=== PATIENT | female | born 1960 | race Caucasian/White ===

== ENCOUNTER 2024-04-21 14:02 | Emergency (ER) | payer MEDICARE, MEDICAID ==
[~2024-04-21] VITALS: Ht 160 cm; Wt 77.0 kg
[2024-04-21 14:20] VITALS: O2SAT 98
[2024-04-21] MEDS: IBUPROFEN 600MG TABLET PO ONE (16:00)
[2024-04-21] MEDS ORDERED: IBUP-2029 MT (16:02)
[2024-04-21 16:28] VITALS: BP 132/78; PULSE 81; RESP 18; TEMP 97.5
== END 2024-04-21 17:19 | disposition home or self-care (01) ==
LOC: ER 14:02
DX: S83.91XA Sprain of unspecified site of right knee, initial encounter (principal); E11.9 Type 2 diabetes mellitus without complications; I10 Essential (primary) hypertension; W18.39XA Other fall on same level, initial encounter; Y93.89 Activity, other specified; Y92.89 Other specified places as the place of occurrence of the external cause; Y99.8 Other external cause status
CPT/HCPCS: 73560; 99283

== ENCOUNTER 2024-06-07 15:02 | Emergency (ER) | payer MEDICARE, MEDICAID ==
[~2024-06-07] VITALS: Ht 167.6 cm; Wt 85.0 kg
[~2024-06-07 15:02] MED LIST: AMLO5TAB88 PO; ASPI-1160 PO; IBUP-2029 MT; ISOS30TA91 PO; LIP40 PO
[2024-06-07 15:03] VITALS: O2SAT 99
[2024-06-07 15:39] LABS: BASOPHILS % 1.2 % (0.0-2.0); EOSINOPHILS % 3.6 % (0.0-5.0); HEMATOCRIT. 38.8 % (36.0-48.0); HEMOGLOBIN. 13.5 g/dL (12.0-16.0); LYMPHOCYTES % 21.8 % (20.0-50.0); MEAN CORPUSCULAR HEMOGLOBIN 32.3 pg (28.0-32.0); MEAN CORPUSCULAR HGB CONC 34.8 g/dL (31.0-37.0); MEAN PLATELET VOLUME 10.4 fl (7.4-10.4); MONOCYTES % 6.6 % (2.0-8.0); NEUTROPHILS % 66.8 % (40.0-76.0); PLATELET 213 x1000/uL (130-400); RED BLOOD CELL COUNT 4.18 mill/uL (4.2-5.4); RED CELL DISTRIBUTION WIDTH 12.8 % (11.6-14.6); WHITE BLOOD COUNT 6.7 x1000/uL (4.5-11.0)
[2024-06-07 15:41] LABS: CHLORIDE 106 mEq/L (98-107); POTASSIUM 3.8 mEq/L (3.5-5.1); SODIUM 139 mEq/L (136-145)
[2024-06-07 15:42] LABS: CARBON DIOXIDE 29 mEq/L (21-32)
[2024-06-07 15:43] LABS: CALCIUM 9.5 mg/dL (8.7-10.4)
[2024-06-07 15:47] LABS: CREATININE 0.7 mg/dL (0.6-1.0); GLUCOSE 129 mg/dL (70-105)
[2024-06-07 15:48] LABS: UREA NITROGEN BLOOD 14 mg/dL (9-23)
[2024-06-07 15:49] LABS: ALANINE AMINOTRANSFERASE 10 IU/L (10-49); ASPARTATE AMINOTRANSFERASE 12 IU/L (<34); TROPONIN I HIGH SENSITIVITY 25 ng/L (3.0-34)
[2024-06-07 15:50] LABS: ALBUMIN 4.3 g/dL (3.2-4.8); BILIRUBIN TOTAL 0.5 mg/dL (0.1-1.0); PROTEIN TOTAL 6.9 g/dL (6.0-8.3)
[2024-06-07] MEDS: LABETALOL 5MG/ML 4ML INJ IV ONE (15:50)
[2024-06-07] MEDS: HYDRALAZINE 20MG/ML VIAL IV ONE (18:24)
[2024-06-07 19:32] LABS: TROPONIN I HIGH SENSITIVITY 24 ng/L (3.0-34)
[2024-06-07 20:00] VITALS: BP 155/51; PULSE 71; RESP 15; TEMP 36.83628; O2SAT 96
== END 2024-06-07 20:10 | disposition home or self-care (01) ==
LOC: ER 15:02 → EDBEDREQ 18:48 → ER 20:10
DX: I16.0 Hypertensive urgency (principal); E11.9 Type 2 diabetes mellitus without complications; Z79.82 Long term (current) use of aspirin; Z79.899 Other long term (current) drug therapy; Z88.8 Allergy status to other drugs, medicaments and biological substances
CPT/HCPCS: 99285; 96374; 71045; 96375; 80053; 83880; 85025; 84484; 36415; 93005; J0360; J3490

== ENCOUNTER 2024-06-17 10:54 | Emergency (ER) | payer MEDICARE, MEDICAID ==
[~2024-06-17] VITALS: Ht 170.2 cm; Wt 84.0 kg
[~2024-06-17 10:54] MED LIST changes: +CLOP-31 PO; -IBUP-2029 MT
[2024-06-17 11:16] VITALS: BP 187/76; PULSE 90; RESP 16; TEMP 98.1; O2SAT 98
== END 2024-06-17 12:43 | disposition home or self-care (01) ==
LOC: ER 10:54
DX: I10 Essential (primary) hypertension (principal); E11.9 Type 2 diabetes mellitus without complications; Z86.73 Personal history of transient ischemic attack (TIA), and cerebral infarction without residual deficits; Z79.899 Other long term (current) drug therapy
CPT/HCPCS: 99283

== ENCOUNTER 2025-06-01 13:01 | Inpatient (IN) | payer MEDICARE, MEDICAID ==
[~2025-06-01] VITALS: Ht 162.6 cm; Wt 65.8 kg
[2025-06-01 13:03] VITALS: O2SAT 99
[2025-06-01] MEDS ORDERED: IBUP-1455 MT (15:17)
[2025-06-01] MEDS ORDERED: MAGNESIUM/ALUMINUM HYDROXIDE/SIMETHICONE 30ML UDC PO ONE (15:45)
[2025-06-01] MEDS ORDERED: ONDANSETRON 4MG ODT PO ONE (15:45)
[2025-06-01] MEDS ORDERED: FAMOTIDINE 20MG TABLET PO ONE (15:45)
[2025-06-01 16:19] LABS: BASOPHILS % 0.8 % (0.0-2.0); EOSINOPHILS % 3.6 % (0.0-5.0); HEMATOCRIT. 33.7 % (36.0-48.0); HEMOGLOBIN. 11.6 g/dL (12.0-16.0); LYMPHOCYTES % 19.0 % (20.0-50.0); MEAN PLATELET VOLUME 9.8 fl (7.4-10.4); MONOCYTES % 7.5 % (2.0-8.0); NEUTROPHILS % 69.1 % (40.0-76.0); PLATELET 252 x1000/uL (130-400); RED BLOOD CELL COUNT 3.65 mill/uL (4.2-5.4); RED CELL DISTRIBUTION WIDTH 12.8 % (11.6-14.6)
[2025-06-01 16:36] LABS: CREATININE 1.2 mg/dL (0.6-1.0); UREA NITROGEN BLOOD 30 mg/dL (9-23)
[2025-06-01 16:38] LABS: ASPARTATE AMINOTRANSFERASE 9 IU/L (<34); BILIRUBIN DIRECT 0.1 mg/dL (<=3.0); BILIRUBIN TOTAL 0.6 mg/dL (0.1-1.0); PROTEIN TOTAL 6.8 g/dL (6.0-8.3)
[2025-06-01] MEDS: ONDANSETRON 4MG ODT PO SCH (17:45)
[2025-06-01] MEDS: MAGNESIUM/ALUMINUM HYDROXIDE/SIMETHICONE 30ML UDC PO SCH (17:45)
[2025-06-01] MEDS: FAMOTIDINE 20MG TABLET PO SCH (17:45)
[2025-06-02] VITALS: BP 128/65; PULSE 60; RESP 18; TEMP 36.6404
[2025-06-02] MEDS ORDERED: ACETAMINOPHEN 325MG TABLET PO PRN (05:15)
[2025-06-02] MEDS ORDERED: DEXTROSE 50% WATER 50ML SYRINGE IV PRN (05:15)
[2025-06-02] MEDS: BLOOD SUGAR DIAGNOSTIC STRIP TEST SCH (06:40)
[2025-06-02] MEDS: INSULIN LISPRO 100 UNITS/ML SUBCUT SCH (07:10)
[2025-06-02 08:00] VITALS: BP_SYST 138; BP_SYST 164; BP_DIAS 53; BP_DIAS 59; PULSE 59; PULSE 83; RESP 17; TEMP 36.3; TEMP 36.8; O2SAT 95; O2SAT 98
[2025-06-02] MEDS: CLOPIDOGREL 75MG TABLET PO SCH (10:30)
[2025-06-02] MEDS: AMLODIPINE 5MG TABLET PO SCH (10:31)
[2025-06-02 12:00] VITALS: BP 188/53; PULSE 70; RESP 18; TEMP 36.4; O2SAT 98
[2025-06-02] MEDS: HYDRALAZINE HCL 50MG TABLET PO SCH ×2 (14:00→21:56)
[2025-06-02 16:00] VITALS: BP 112/55; PULSE 62; RESP 20; TEMP 36.7; O2SAT 100
[2025-06-02 17:26] LABS: TROPONIN I HIGH SENSITIVITY 39 ng/L (3.0-34)
[2025-06-02 19:06] LABS: CLARITY URINE TURBID (CLEAR); COLOR URINE YELLOW (YELLOW); GLUCOSE URINE NEGATIVE (NEGATIVE); KETONES URINE NEGATIVE (NEGATIVE); LEUKOCYTE ESTERASE URINE NEGATIVE (NEGATIVE); NITRITE URINE NEGATIVE (NEGATIVE); OCCULT BLOOD URINE NEGATIVE (NEGATIVE); PH URINE 5.0 (4.5-8.0); PROTEIN URINE NEGATIVE (NEGATIVE); SPECIFIC GRAVITY URINE 1.021 (1.005-1.030); UROBILINOGEN URINE 0.2 E.U./dL (0.2-1.0)
[2025-06-02] MEDS: ASPIRIN 81MG TABLET PO SCH (19:26)
[2025-06-02] MEDS: ENOXAPARIN 40MG/0.4ML SYR SUBCUT SCH (19:26)
[2025-06-02 19:27] LABS: RBC URINE 0-2 /hpf (0-2); WBC URINE 0-2 /hpf (0-2)
[2025-06-02 19:28] LABS: BACTERIA URINE TRACE; SQUAMOUS EPITHELIAL CELL URINE RARE /lpf (RARE/1+); URIC ACID CRYSTALS URINE 2+ /lpf
[2025-06-02 20:00] VITALS: BP 128/54; PULSE 67; RESP 17; TEMP 36.2; O2SAT 99
[2025-06-02] MEDS: ATORVASTATIN CALCIUM 20MG TABLET PO SCH (21:56)
[2025-06-03] VITALS: BP 121/49; PULSE 57; RESP 57; TEMP 36.2; O2SAT 97
[2025-06-03 04:00] VITALS: BP 131/51; PULSE 56; RESP 16; TEMP 36.3; O2SAT 98
[2025-06-03 08:00] VITALS: BP 148/48; PULSE 60; RESP 18; TEMP 36.1; O2SAT 99
[2025-06-03] MEDS: LACTULOSE 20G/30ML UDC PO NR (10:39)
[2025-06-03 12:00] VITALS: BP 137/60; PULSE 73; RESP 18; TEMP 36.3; O2SAT 100
[2025-06-03 13:22] LABS: TROPONIN I HIGH SENSITIVITY 45 ng/L (3.0-34)
[2025-06-03 16:00] VITALS: BP 140/54; PULSE 76; RESP 18; TEMP 36.3; O2SAT 100
[2025-06-03 20:00] VITALS: BP 137/51; PULSE 76; RESP 18; TEMP 36.7; O2SAT 99
[2025-06-04] VITALS: BP 137/59; PULSE 66; RESP 18; TEMP 36.7; O2SAT 99
[2025-06-04 04:00] VITALS: BP 108/63; PULSE 64; RESP 18; TEMP 36.5; O2SAT 99
[2025-06-04 07:34] LABS: CREATININE 1.1 mg/dL (0.6-1.0); UREA NITROGEN BLOOD 18.0 mg/dL (9-23)
[2025-06-04 08:00] VITALS: BP 155/51; PULSE 68; RESP 16; TEMP 36.3; O2SAT 98
[2025-06-04 11:44] VITALS: BP 155/48; PULSE 68; RESP 17; TEMP 97.5
== END 2025-06-04 12:39 | disposition home or self-care (01) | DRG 73 ==
LOC: ER 13:01 → 7EST 22:22 → EDBEDREQ 22:30 → EDBEDREQTM 22:30 → CANRESERV 22:59 → ENRESERV 22:59
PROVIDERS: ADMIT Internal Medicine; ATTEND Internal Medicine
DX: G90.89 Other disorders of autonomic nervous system (principal); N17.0 Acute kidney failure with tubular necrosis; I5A Non-ischemic myocardial injury (non-traumatic); I10 Essential (primary) hypertension; E11.9 Type 2 diabetes mellitus without complications; D64.9 Anemia, unspecified; Z86.73 Personal history of transient ischemic attack (TIA), and cerebral infarction without residual deficits
CPT/HCPCS: 36415; 80048; 80076; 81003; 82962; 83036; 84484; 85025; 99285; J1650; J1815; Q0162